=== PATIENT | female | born 2000 ===

== ENCOUNTER → 2023-11-25 | Outpatient (CLI) | payer OTHER | LOC: MHCPAIN 09:39 | DX: M70.61 Trochanteric bursitis, right hip (principal); M70.62 Trochanteric bursitis, left hip; G89.29 Other chronic pain | CPT/HCPCS: G0463 ==

== ENCOUNTER → 2023-12-23 | Outpatient (CLI) | payer OTHER ==
[~2023-12-23] MED LIST: Lidocaine PF 1% (10 MG/ML) 5 ML VIAL ONE
== END ==
LOC: MHCPAIN 10:00
DX: M70.62 Trochanteric bursitis, left hip (principal); M70.61 Trochanteric bursitis, right hip; M25.551 Pain in right hip; M25.552 Pain in left hip
CPT/HCPCS: J0665; J1010